=== PATIENT | male | born 1970 | race Caucasian/White ===

== ENCOUNTER 2017-05-22 14:21 | Emergency (ER) ==
[2017-05-22 14:25] VITALS: BP 177/98; TEMP 97.9; BMI 26.6
[2017-05-22] MEDS ORDERED: BOOSTRIX IM ONE (14:35)
[2017-05-22] MEDS ORDERED: LIDOCAINE HCL 1% SDV SUBCUT STA ×2 (14:36→16:09)
[2017-05-22] MEDS ORDERED: NORCO 5-325 PO STA (14:36)
[2017-05-22] MEDS ORDERED: ROCEPHIN IM STA (14:36)
--- NOTE | 2017-05-22 14:58 | DI ---
EXAM: Three views of the right thumb HISTORY: Crush injury. COMPARISON: None FINDINGS: There is a linear lucency through the distal phalanx from the tip of distal phalanx extendi ng into the IP joint. There is soft tissue injury. Proximal phalanx is unremarkable. The third jose ge demonstrates the fracture is comminuted. Remaining osseous structures are unremarkable. IMPRESSION: Comminuted fracture of the distal phalanx and the tip extending proximally to the IP kimberly nt. There is associated soft tissue swelling.
--- NOTE | 2017-05-22 16:29 | ED.PDOC ---
General ED Provider: Dr. GLADYS KUMAR Chief Complaint: Finger Pain/Injury Stated Complaint: pateint states that he accidentally smashed right thumb on a eugene Time Seen by Physician: 14:30 Mode of Arrival: Walk-In Information Source: Patient Exam Limitations: No limitations [facility] Nursing and Triage Documentation Reviewed and Agree: Yes Trauma/Injury Complaint Exam - Trauma Complaint/Exam Location of Pain or Injury: Reports: RUE (Thumb) Mechanism of Injury: Reports: Other (Crush injury with Eugene ) Onset/Duration: 1 hour Symptoms Are: Still present Timing of Treatment: Immediate Initial Severity: Severe Current Severity: Severe Character: Reports: Aching, Pressure, Burning Aggravating: Reports: Movement Associated Signs and Symptoms: Denies: LOC, Confusion, Memory loss, Lethargy, Vomiting, Bleeding, Bruising, Swelling, Extremity disuse, Painful respiration, Hoarseness, Dysphagia, Hemoptysis, Significant blood loss Nexus Low Risk Criteria: No post-midline CS tender, No evidence of intoxicat., No Altered LOC, No focal neuro deficit, No distracting injuries Glascow Coma Scale (see protocol): 15 Compartment Syndrome Risk Factors: Present: Pain. Absent: Paralysis, Pallor, Pulselessness, Paresthesias Trauma Findings: Present: Limited ROM Skin Findings: Present: Tenderness, Laceration (Through the mid aspect of the thumb. ), Abrasion, Avulsion Differential Diagnoses: Abrasion, Fracture, Laceration, Sprain, Strain Review of Systems - Review Of Systems Constitutional: Reports: No symptoms Eyes: Reports: No symptoms Ears, Nose, Mouth, Throat: Reports: No symptoms Respiratory: Reports: No symptoms Cardiac: Reports: No symptoms GI: Reports: No symptoms : Reports: No symptoms Musculoskeletal: Reports: Joint pain Skin: Reports: Bruising Neurological: Reports: Anxiety Endocrine: Reports: No symptoms Hematologic/Lymphatic: Reports: No symptoms All Other Systems: Reviewed and Negative Past Medical History - Past Medical History Previously Healthy: Yes Endocrine: Reports: None Cardiovascular: Reports: None Respiratory: Reports: None Hematological: Reports: None Gastrointestinal: Reports: None Genitourinary: Reports: None Neuro/Psych: Reports: None Musculoskeletal: Reports: None Cancer: Reports: None - Surgical History General Surgical History: Reports: None - Family History Family History: Reports: None - Social History Smoking Status: Never smoker Hx Substance Use: No Alcohol Screening: None - Immunizations Tetanus Shot up to Date: No Physical Exam - Physical Exam Appearance: Ill-appearing Ill-appearing: Moderate Pain Distress: Severe Musculoskeletal: ROM intact Skin: Warm, Dry Psychiatric: Anxious Interpretation - Radiology Interpretation Radiology Interpretation By: Radiologist Radiology Results: Positive (communitied fracture) Re-Evaluation - Re-Evaluation Vital Signs Stable: Yes (bp 171/102, p 102) Physician Notification - Case Discussed Physician Notified: Dr montes Time of Notification: 16:45 (ER accepting ) Physician Notified: Dr. Cisneros Time of Notification: 16:30 (Hand surgery Will see in the ER ) Critical Care Note - Critical Care Note Total Time (mins): 0 Course - Course Orders, Labs, Meds: Orders Category Date Time Status Ceftriaxone Sodium [Rocephin] MEDS 05/22/17 14:36 Discontinued 1 gm IM ONCE STA Diphth,Pertuss(Acell),Tet Vac [Boostrix] MEDS 05/22/17 14:35 Discontinued 0.5 ml IM .ONCE ONE Hydrocodone Bit/Acetaminophen [Bradford 5-325] MEDS 05/22/17 14:36 Discontinued 1 tab PO ONCE STA Lidocaine HCl/Pf [Lidocaine HCl 1% Sdv] MEDS 05/22/17 14:36 Discontinued 5 ml SUBCUT ONCE STA FINGER(S) RIGHT MIN 2V Stat RADS 05/22/17 14:35 Completed Medications Discontinued Medications Generic Name Dose Route Start Last Admin Trade Name Freq PRN Reason Stop Dose Admin Acetaminophen/Hydrocodone Bitart 1 tab 05/22/17 14:36 05/22/17 14:47 Bradford 5-325 PO 05/22/17 14:37 1 tab ONCE STA Administration Ceftriaxone Sodium 1 gm 05/22/17 14:36 05/22/17 14:52 Rocephin IM 05/22/17 14:37 1 gm ONCE STA Administration Diphtheria/Pertussis/Tetanus Vacc 0.5 ml 05/22/17 14:35 05/22/17 14:49 Boostrix IM 05/22/17 14:36 0.5 ml .ONCE ONE Administration Lidocaine HCl 5 ml 05/22/17 14:36 05/22/17 14:52 Lidocaine Hcl 1% Sdv SUBCUT 05/22/17 14:37 5 ml ONCE STA Administration Vital Signs: Temp Pulse Resp BP Pulse Ox 05/22/17 14:21 97.9 F 120 H 18 177/98 H 97 Departure - Departure Time of Disposition: 17:31 Disposition: TSF SHORT-TRM HOSP Discharge Problem: Finger fracture, right Qualifiers: Encounter type: initial encounter Finger: thumb Fracture type: open Phalanx: distal Fracture alignment: displaced Qualified Code(s): S62.521B - Displaced fracture of distal phalanx of right thumb, initial encounter for open fracture Finger laceration Qualifiers: Encounter type: initial encounter Finger: thumb Damage to nail status: with damage Foreign body presence: without foreign body Laterality: right Qualified Code(s): S61.111A - Laceration without foreign body of right thumb with damage to nail, initial encounter Condition: Stable Pt referred to PMD for follow-up: No Allergies/Adverse Reactions: Allergies No Known Allergies Allergy (Verified 05/22/17 14:26) Home Medications: Ambulatory Orders Ranitidine HCl [Zantac] 150 mg PO BID 11/29/13 Pt. Stabilized Within Hospital's Capabilities/Transferred To: [facility] Disposition Discussed With: Patient, Family
== END 2017-05-22 17:33 | disposition short-term general hospital (02) ==
LOC: ED 14:21
DX: S62.521B Displaced fracture of distal phalanx of right thumb, initial encounter for open fracture (principal); S61.111A Laceration without foreign body of right thumb with damage to nail, initial encounter; W24.0XXA Contact with lifting devices, not elsewhere classified, initial encounter
CPT/HCPCS: 90471; 90715; 96372; 99285

== ENCOUNTER 2017-05-22 17:37 | Outpatient (CLI) ==
[2017-05-22 14:25] VITALS: BMI 26.6
== END 2017-05-22 17:38 | disposition short-term general hospital (02) ==
LOC: AMBL 17:37
PROVIDERS: ATTEND Internal Medicine Geriatric Medicine
DX: S62.521A Displaced fracture of distal phalanx of right thumb, initial encounter for closed fracture (principal); W24.0XXA Contact with lifting devices, not elsewhere classified, initial encounter

== ENCOUNTER 2017-11-22 17:23 | Emergency (ER) ==
[2017-11-22 17:28] VITALS: BMI 23.9
--- NOTE | 2017-11-22 17:40 | ED.PDOC ---
General ED Provider: Dr. OH PERDOMO Chief Complaint: Wound Check Stated Complaint: Skin Ulcer Lt Foot -Plantar aspect Distal 1st Metatarsal, present for unknow period of time. Has malodorous drainage to the open wound. Measures 4 X 4 CM. 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 States it has been hurting badly. Lives at home with his elderly mother. Time Seen by Physician: 17:45 Mode of Arrival: Walk-In Information Source: Patient, Family Exam Limitations: No limitations Nursing and Triage Documentation Reviewed and Agree: Yes Reviewed sepsis parameters & appropriate labs ordered?: Yes System Inflammatory Response Syndrome: Temp 101F or Greater, Pulse >90 BPM Sepsis Protocol: For patient's 13 years and over: Temp is 96.8 and below OR 101 and greater Pulse >90 BPM Resp >20/minute Acutely Altered Mental Status Are patient's symptoms suggestive of a new infection, such as: -Pneumonia -Skin, Soft Tissue -Endocarditis -UTI -Bone, Joint Infection -Implantable Device -Acute Abdominal Infection -Wound Infection -Meningitis -Blood Stream Catheter Infection -Unknown Skin Complaint Exam - Skin/Soft Tissue Complaint/Exam Onset/Duration: Several months Symptoms Are: Worse Timing: Constant Initial Severity: Moderate Current Severity: Moderate Character: Reports: Redness, Swelling, Raised, Painful Aggravating: Reports: Touch Associated Signs and Symptoms: Reports: Fever, Drainage, Tenderness, Red streaks Related History: Denies: Similar episode Related Surgical History: Reports: None Recent Exposure to Others w/Similar Symptoms: No Skin Findings: Present: Erythema, Lymphangitic streaking, Dry scaly skin, Wet ulceration Differential Diagnoses: Abscess, Cellulitis, MRSA Review of Systems - Review Of Systems Constitutional: Reports: Chills, Fever Eyes: Reports: No symptoms Ears, Nose, Mouth, Throat: Reports: No symptoms Respiratory: Reports: No symptoms Cardiac: Reports: No symptoms GI: Reports: No symptoms : Reports: No symptoms Musculoskeletal: Reports: Joint pain Skin: Reports: Dryness, Other (as described open ulcer 1st MTP joint plantar aspect Lt Foot) Neurological: Reports: No symptoms Endocrine: Reports: Flushing, Intolerance to heat, Increased hunger Hematologic/Lymphatic: Reports: No symptoms All Other Systems: Reviewed and Negative Past Medical History - Past Medical History Previously Healthy: Yes Endocrine: Reports: None Cardiovascular: Reports: None Respiratory: Reports: None Hematological: Reports: None Gastrointestinal: Reports: None Genitourinary: Reports: None Neuro/Psych: Reports: None Musculoskeletal: Reports: None Cancer: Reports: None - Surgical History General Surgical History: Reports: None - Family History Family History: Reports: None - Social History Smoking Status: Never smoker Hx Substance Use: No Alcohol Screening: None Physical Exam - Physical Exam Appearance: Ill-appearing, Thin Ill-appearing: Moderate Pain Distress: Moderate Eyes: JAMILAH, EOMI, Conjunctiva clear ENT: Ears normal, Nose normal, Oropharynx normal Neck: Supple Respiratory: Airway patent, Breath sounds clear, Breath sounds equal, Respirations nonlabored Cardiovascular: RRR, Pulses normal, No rub, No murmur GI/: Soft, Nontender, No masses, Bowel sounds normal, No Organomegaly Musculoskeletal: Normal strength (abnormal area lt foot) Skin: Warm, Dry, Normal color Neurological: Motor intact, Reflexes intact, Cranial nerves intact, Alert, Oriented Psychiatric: Affect appropriate, Mood appropriate Interpretation - Radiology Interpretation Radiology Interpretation By: Radiologist Radiology Results: Positive Exam Interpreted: CT Scan (Lt Foot ) Xray Comments: Cellulitis Re-Evaluation - Re-Evaluation Time of Re-Evaluation: 19:10 Status: Unchanged Vital Signs Stable: Yes Appearance: NAD Lungs: Clear Skin: Warm and Dry Neuro: Alert and Oriented X3 CV: RRR Critical Care Note - Critical Care Note Total Time (mins): 60 Comments: Monitored status, initiated dx testing and treatment/. [facility] called no beds in unit Arranged for transfer to [facility] Spoke with Dr Workman who agreed to transfer Explained to patient. Course - Course Hematology/Chemistry: 11/22/17 17:51 11/22/17 17:51 Orders, Labs, Meds: Lab Review 11/22/17 11/22/17 17:51 17:51 WBC 19.24 H RBC 4.16 L Hgb 11.8 L Hct 32.8 L MCV 78.8 L MCH 28.4 MCHC 36.0 H RDW Coeff of Perla 11.8 Plt Count 424 Immature Gran % (Auto) 0.5 Neut % (Auto) 82.8 Lymph % (Auto) 7.4 L [place] % (Auto) 8.8 Eos % (Auto) 0.1 Baso % (Auto) 0.4 Immature Gran # (Auto) 0.1 Neut # (Auto) 15.9 H Lymph # (Auto) 1.4 [place] # (Auto) 1.7 Eos # (Auto) 0.0 Baso # (Auto) 0.1 Sodium 123 L Potassium 4.8 Chloride 89 L Carbon Dioxide 24 Anion Gap 14.8 BUN 18 Creatinine 1.05 Estimated GFR (MDRD) 75.00 BUN/Creatinine Ratio 17.14 Glucose 583 H* Calcium 9.3 Total Bilirubin 0.6 AST 10 L ALT 11 L Alkaline Phosphatase 79 Total Creatine Kinase 127 CK-MB (CK-2) 1.6 CK-MB (CK-2) % 1.57108 Total Protein 7.1 Albumin 2.9 L Globulin 4.2 Albumin/Globulin Ratio 0.69 Orders Category Date Time Status BLOOD GLUCOSE MONITORING 0630,1100,1700,2100 CARE 11/22/17 19:38 Ordered BLOOD GLUCOSE MONITORING Q1HR CARE 11/22/17 19:38 Ordered IV [ED IV/MEDIPORT/POWERPORT] .ONCE EMERGENCY 11/22/17 17:38 Active BLOOD CULTURE (ED ONLY) Stat LAB 11/22/17 17:51 Received CBC W/ AUTO DIFF Stat LAB 11/22/17 17:51 Completed CMP [COMPREHENSIVE METABOLIC PANEL] Stat LAB 11/22/17 17:51 Completed CPK [CREATINE KINASE] Stat LAB 11/22/17 17:51 Completed 0.9 % Sodium Chloride [Saline Flush] MEDS 11/22/17 17:38 Ordered 1 syr IVF PRN PRN Insulin Regular, Human [Humulin R] MEDS 11/22/17 19:37 Stat 13 unit SUBCUT ONCE STA Sodium Chloride 0.9% [Sodium Chloride] 1,000 ml MEDS 11/22/17 19:37 Ordered IV BOLUS Vancomycin HCl [Vancomycin] 1 gm MEDS 11/22/17 19:39 Ordered 0.9 % Sodium Chloride [Sodium Chloride] [address] FOOT LEFT WITHOUT CONTRAST Stat RADS 11/22/17 17:38 Completed Medications Generic Name Dose Route Start Last Admin Trade Name Freq PRN Reason Stop Dose Admin Sodium Chloride 1,000 mls @ 125 mls/hr 11/22/17 19:37 Sodium Chloride IV 11/23/17 03:36 BOLUS STA Vancomycin HCl 1 gm/ Sodium 250 mls @ 250 mls/hr 11/22/17 19:39 Chloride IV 11/22/17 20:38 ONCE STA Sodium Chloride 1 syr 11/22/17 17:38 Saline Flush IVF PRN PRN To flush IV Discontinued Medications Generic Name Dose Route Start Last Admin Trade Name Freq PRN Reason Stop Dose Admin Insulin Human Regular 13 unit 11/22/17 19:37 Humulin R SUBCUT 11/22/17 19:38 ONCE STA Vital Signs: Temp Pulse Resp BP Pulse Ox 11/22/17 19:29 100.6 F H 93 H 20 123/88 98 11/22/17 17:24 101.2 F H 122 H 20 156/96 H 93 L Departure - Departure Time of Disposition: 19:50 Disposition: TSF SHORT-TRM HOSP Discharge Problem: 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
--- NOTE | 2017-11-22 18:20 | CT ---
EXAM: CT scan of the left foot without contrast HISTORY: Ulcer, patient is a diabetic, no fever. No drainage TECHNIQUE: Imaging of the left foot was performed without contrast. Sagittal and coronal reconstruc tions and axial images were provided for interpretation. FINDINGS: No acute fractures are seen. There is plantar soft tissue swelling seen at the level of t he metatarsal phalangeal articulation of the great toe. No definite lytic changes are seen within th e osseous structures. There is gas seen within the plantar soft tissues sent to the metatarsal phala ngeal articulation of the great toe. IMPRESSION: There is soft tissue swelling and gas formation seen within the plantar soft tissues at the level of the metatarsal phalangeal articulation of the great toe compatible with cellulitis. The re is no definite lytic change seen within the osseous structures to suggest osteomyelitis at this ti me. If there is continuing suspicion for osteomyelitis, MRI of the left foot with and without contras t can be obtained for further evaluation.
[2017-11-22 19:29] VITALS: BP 123/88; TEMP 100.6
[2017-11-22] MEDS ORDERED: HUMULIN R SUBCUT STA (19:37)
[2017-11-22] MEDS ORDERED: SODIUM CHLORIDE 1,000 ML IV STA (19:37)
[2017-11-22] MEDS ORDERED: VANCOMYCIN 1 GM in SODIUM CHLORIDE 250 ML IV STA (19:39)
== END 2017-11-22 21:00 | disposition short-term general hospital (02) ==
LOC: ED 17:23
DX: E11.621 Type 2 diabetes mellitus with foot ulcer (principal); L97.429 Non-pressure chronic ulcer of left heel and midfoot with unspecified severity; E11.65 Type 2 diabetes mellitus with hyperglycemia; L03.116 Cellulitis of left lower limb; E87.1 Hypo-osmolality and hyponatremia; I10 Essential (primary) hypertension
CPT/HCPCS: 36415; 80053; 82550; 82553; 82962; 85025; 87040; 87070; 87186; 96365; 96372; 99285

== ENCOUNTER 2017-11-22 21:01 | Outpatient (CLI) ==
[2017-11-22 17:28] VITALS: BMI 23.9
== END 2017-11-22 21:20 | disposition short-term general hospital (02) ==
LOC: AMBL 21:01
PROVIDERS: ATTEND Family Medicine
DX: E11.621 Type 2 diabetes mellitus with foot ulcer (principal); L97.529 Non-pressure chronic ulcer of other part of left foot with unspecified severity; E11.65 Type 2 diabetes mellitus with hyperglycemia

== ENCOUNTER 2018-02-17 08:15 | Emergency (ER) ==
[2018-02-17 08:19] VITALS: TEMP 97.5; BMI 21.4
[2018-02-17 08:21] VITALS: BP 110/78
[2018-02-17] MEDS ORDERED: MORPHINE 4 MG/ML SYRINGE IM STA (09:17)
--- NOTE | 2018-02-17 09:30 | DI ---
EXAM: Radiographs, right clavicle HISTORY: Right clavicular pain. COMPARISON: None available. TECHNIQUE: Two views. FINDINGS/IMPRESSION: A comminuted proximal humeral fracture involves the surgical neck and greater tuberosity. Inferior p osition of the humeral head with respect to the glenoid is likely due to joint effusion.
--- NOTE | 2018-02-17 09:30 | ED.PDOC ---
General ED Provider: Dr. RIANA BROWN Chief Complaint: Shoulder Pain/Injury Stated Complaint: right shoulder pain Time Seen by Physician: 08:18 (fall seen with ochoa at all times ) Mode of Arrival: Walk-In Information Source: Patient Exam Limitations: No limitations Primary Care Provider: [facility] Nursing and Triage Documentation Reviewed and Agree: Yes Does patient meet sepsis criteria?: No If yes, has appropriate treatment been initiated?: No System Inflammatory Response Syndrome: Not Applicable Sepsis Protocol: For patient's 13 years and over: Temp is 96.8 and below OR 101 and greater Pulse >90 BPM Resp >20/minute Acutely Altered Mental Status Are patient's symptoms suggestive of a new infection, such as: -Pneumonia -Skin, Soft Tissue -Endocarditis -UTI -Bone, Joint Infection -Implantable Device -Acute Abdominal Infection -Wound Infection -Meningitis -Blood Stream Catheter Infection -Unknown Trauma/Injury Complaint Exam - Trauma Complaint/Exam Location of Pain or Injury: Reports: RUE (shoulder ), Other (right shoulder pain ). Denies: Head, Scalp, Face, Neck, LUE, Chest, Abdomen, Back Mechanism of Injury: Reports: Fall Onset/Duration: today at 5:30 am injury limited to right shoulder Symptoms Are: Still present Timing of Treatment: Immediate Initial Severity: Moderate Current Severity: Moderate Character: Reports: Aching Aggravating: Reports: Movement Alleviating: Reports: Rest, Immobilization Associated Signs and Symptoms: Denies: LOC, Confusion, Memory loss, Lethargy, Vomiting, Bleeding, Bruising, Swelling, Extremity disuse, Painful respiration, Hoarseness, Dysphagia, Hemoptysis, Significant blood loss Last Meal: last night Penetrating Injury Risk Factors: Reports: None Nexus Low Risk Criteria: No post-midline CS tender, No evidence of intoxicat., No Altered LOC, No focal neuro deficit, No distracting injuries Glascow Coma Scale (see protocol): 15 Compartment Syndrome Risk Factors: Present: Pain Review of Systems - Review Of Systems Constitutional: Reports: No symptoms Eyes: Reports: No symptoms Ears, Nose, Mouth, Throat: Reports: No symptoms Respiratory: Reports: No symptoms Cardiac: Reports: No symptoms GI: Reports: No symptoms : Reports: No symptoms Musculoskeletal: Reports: Joint pain (right shoulder pain) Skin: Reports: No symptoms Neurological: Reports: No symptoms Endocrine: Reports: No symptoms Hematologic/Lymphatic: Reports: No symptoms All Other Systems: Reviewed and Negative Past Medical History - Past Medical History Previously Healthy: Yes Endocrine: Reports: None Cardiovascular: Reports: None Respiratory: Reports: None Hematological: Reports: None Gastrointestinal: Reports: None Genitourinary: Reports: None Neuro/Psych: Reports: None Musculoskeletal: Reports: None Cancer: Reports: None - Surgical History General Surgical History: Reports: None - Family History Family History: Reports: None - Social History Smoking Status: Never smoker Hx Substance Use: No Alcohol Screening: None Physical Exam - Physical Exam Appearance: Well-appearing, No pain distress, Well-nourished Eyes: JAMILAH, EOMI, Conjunctiva clear ENT: Ears normal, Nose normal, Oropharynx normal Respiratory: Airway patent, Breath sounds clear, Breath sounds equal, Respirations nonlabored Cardiovascular: RRR, Pulses normal, No rub, No murmur GI/: Soft, Nontender, No masses, Bowel sounds normal, No Organomegaly Musculoskeletal: Limited ROM (right shoulder the shoulder is grossly abnormal ) Skin: Warm, Dry, Normal color Neurological: Sensation intact, Motor intact, Reflexes intact, Cranial nerves intact, Alert, Oriented Psychiatric: Affect appropriate, Mood appropriate Interpretation - Radiology Interpretation Radiology Interpretation By: Radiologist Radiology Results: Positive (fracture dislocation right shoulder) Critical Care Note - Critical Care Note Total Time (mins): 0 Course - Course Orders, Labs, Meds: Orders Category Date Time Status Morphine Sulfate [Morphine 4 mg/ml Syringe] MEDS 02/17/18 09:17 Stat 4 mg IM ONCE STA CLAVICLE, RIGHT 2 VIEWS Stat RADS 02/17/18 08:44 Ordered SHOULDER, RIGHT MIN 2V Stat RADS 02/17/18 08:44 Ordered Medications Discontinued Medications Generic Name Dose Route Start Last Admin Trade Name Freq PRN Reason Stop Dose Admin Morphine Sulfate 4 mg 02/17/18 09:17 Morphine 4 Mg/Ml Syringe IM 02/17/18 09:18 ONCE STA Vital Signs: Temp Pulse Resp BP Pulse Ox 02/17/18 08:15 97.5 F L 110 H 20 110/78 98 Departure - Departure Time of Disposition: 10:00 Disposition: TSF SHORT-TRM HOSP Discharge Problem: Fracture of right shoulder Qualifiers: Encounter type: initial encounter Fracture type: closed Qualified Code(s): S42.91XA - Fracture of right shoulder girdle, part unspecified, initial encounter for closed fracture Shoulder dislocation Qualifiers: Encounter type: initial encounter Laterality: right Qualified Code(s): S43.004A - Unspecified dislocation of right shoulder joint, initial encounter Instructions: Shoulder Dislocation (ED), Arthralgia (ED) Condition: Good Pt referred to PMD for follow-up: Yes IPMP verified?: No Additional Instructions: Please call your Family Physician as soon as possible to schedule a follow-up appointment. your shoulder is broken and dislocated you must see the surgeon as i have told you Allergies/Adverse Reactions: Allergies No Known Allergies Allergy (Verified 02/17/18 08:19) Home Medications: Ambulatory Orders Ranitidine HCl [Zantac] 150 mg PO DAILY 11/29/13 Metformin HCl 500 mg PO BID 12/07/17 Multivitamin [Multi-Vitamin Daily] 1 each PO DAILY 12/07/17 Cholecalciferol (Vitamin D3) [Vitamin D3] 5,000 unit PO DAILY 12/30/17 Ergocalciferol (Vitamin D2) [Vitamin D2] 50,000 unit PO WEEKLY 02/17/18 Disposition Discussed With: Patient, Family
--- NOTE | 2018-02-17 09:31 | DI ---
EXAM: Three views of the right shoulder. History: Right shoulder trauma. Findings / impression: Moderately displaced and impacted fracture of the right humeral neck. The ri ght humeral head is subluxed inferiorly on the glenoid.
== END 2018-02-17 10:40 | disposition short-term general hospital (02) ==
LOC: ED 08:15
DX: S42.211A Unspecified displaced fracture of surgical neck of right humerus, initial encounter for closed fracture (principal); W19.XXXA Unspecified fall, initial encounter
CPT/HCPCS: 99285

== ENCOUNTER 2018-02-17 10:43 | Outpatient (CLI) ==
[2018-02-17 08:19] VITALS: BMI 21.4
== END 2018-02-17 11:04 | disposition short-term general hospital (02) ==
LOC: AMBL 10:43
PROVIDERS: ATTEND Internal Medicine
DX: S42.211A Unspecified displaced fracture of surgical neck of right humerus, initial encounter for closed fracture (principal); W19.XXXA Unspecified fall, initial encounter

== ENCOUNTER 2018-03-03 09:40 | Outpatient (CLI) | END 2018-03-03 09:41 | disposition home or self-care (01) | LOC: FCC-LAB 09:40 | PROVIDERS: ATTEND Nurse Practitioner Family | DX: E11.621 Type 2 diabetes mellitus with foot ulcer (principal); I95.9 Hypotension, unspecified | CPT/HCPCS: 36415; 83037 ==

== ENCOUNTER 2018-09-15 11:05 | Inpatient (IN) ==
[2018-09-15 11:19] VITALS: BP 128/88
[2018-09-15] MEDS ORDERED: ROCEPHIN IM STA (11:23)
[2018-09-15] MEDS ORDERED: LIDOCAINE HCL 1% SDV IM STA (11:23)
--- NOTE | 2018-09-15 11:24 | ED.PDOC ---
General ED Provider: Dr. OH HUGHES MD Chief Complaint: Sore Throat Stated Complaint: sore throat Time Seen by Physician: 11:15 Mode of Arrival: Wheelchair Information Source: Patient, Family Exam Limitations: No limitations Primary Care Provider: FALGUNI DALE Nursing and Triage Documentation Reviewed and Agree: Yes Does patient meet sepsis criteria?: No If yes, has appropriate treatment been initiated?: Yes System Inflammatory Response Syndrome: Not Applicable Sepsis Protocol: For patient's 13 years and over: Temp is 96.8 and below OR 101 and greater Pulse >90 BPM Resp >20/minute Acutely Altered Mental Status Are patient's symptoms suggestive of a new infection, such as: -Pneumonia -Skin, Soft Tissue -Endocarditis -UTI -Bone, Joint Infection -Implantable Device -Acute Abdominal Infection -Wound Infection -Meningitis -Blood Stream Catheter Infection -Unknown Review of Systems - Review Of Systems Constitutional: Reports: No symptoms Eyes: Reports: No symptoms Ears, Nose, Mouth, Throat: Reports: Throat pain, Throat swelling Respiratory: Reports: No symptoms Cardiac: Reports: No symptoms GI: Reports: No symptoms : Reports: No symptoms Musculoskeletal: Reports: No symptoms Skin: Reports: No symptoms Neurological: Reports: No symptoms Endocrine: Reports: No symptoms Hematologic/Lymphatic: Reports: No symptoms All Other Systems: Reviewed and Negative Past Medical History - Past Medical History Previously Healthy: Yes Endocrine: Reports: None Cardiovascular: Reports: None Respiratory: Reports: None Hematological: Reports: None Gastrointestinal: Reports: None Genitourinary: Reports: None Neuro/Psych: Reports: None Musculoskeletal: Reports: None Cancer: Reports: None - Surgical History General Surgical History: Reports: None - Family History Family History: Reports: None - Social History Smoking Status: Never smoker Hx Substance Use: No Alcohol Screening: None Physical Exam - Physical Exam Appearance: Well-appearing, No pain distress, Well-nourished, Thin Ill-appearing: Mild Pain Distress: Mild Eyes: JAMILAH, EOMI, Conjunctiva clear ENT: Ears normal, Nose normal, Erythema, Exudate Neck: Supple Respiratory: Airway patent, Breath sounds clear, Breath sounds equal, Respirations nonlabored Cardiovascular: RRR, Pulses normal, No rub, No murmur GI/: Soft, Nontender, No masses, Bowel sounds normal, No Organomegaly Musculoskeletal: Normal strength, ROM intact, No edema, No calf tenderness Skin: Warm, Dry, Normal color Neurological: Sensation intact, Motor intact, Reflexes intact, Cranial nerves intact, Alert, Oriented Psychiatric: Affect appropriate, Mood appropriate Critical Care Note - Critical Care Note Total Time (mins): 0 Course - Course Hematology/Chemistry: 09/15/18 11:32 09/15/18 10:31 Vital Signs: Temp Pulse Resp BP Pulse Ox 09/15/18 11:07 99.7 F H 145 H 20 128/88 94 L Departure - Departure Time of Disposition: 16:30 Disposition: ADMITTED INPATIENT Discharge Problem: Hyperglycemia Sepsis Qualifiers: Sepsis type: sepsis due to unspecified organism Qualified Code(s): A41.9 - Sepsis, unspecified organism Condition: Good Pt referred to PMD for follow-up: Yes IPMP verified?: No Allergies/Adverse Reactions: Allergies No Known Allergies Allergy (Verified 09/15/18 11:13) Home Medications: Ambulatory Orders Ranitidine HCl [Zantac] 150 mg PO DAILY 11/29/13 Metformin HCl 500 mg PO BID 12/07/17 Multivitamin [Multi-Vitamin Daily] 1 each PO DAILY 12/07/17 Ergocalciferol (Vitamin D2) [Vitamin D2] 50,000 unit PO WEEKLY 02/17/18 Disposition Discussed With: Patient, Family
[2018-09-15] MEDS ORDERED: LACTATED RINGERS 1,000 ML IV STA ×2 (11:52→16:17)
--- NOTE | 2018-09-15 12:41 | DI ---
EXAM: CHEST FRONTAL AND LATERAL VIEWS HISTORY: Increased WBC count. COMPARISON: 02/14/2009 FINDINGS: Heart size is within normal limits. No consolidations or acute infiltrates. Normal vascu larity. No pleural fluid. IMPRESSION: 1. No acute cardiopulmonary process identified.
[2018-09-15] MEDS ORDERED: SODIUM CHLORIDE 1,000 ML IV SCH (17:30)
[2018-09-15] MEDS ORDERED: GLUCOTROL PO SCH (17:30)
[2018-09-15] MEDS: GLUCOPHAGE PO SCH ×2 (17:34→17:52)
[2018-09-15 17:39] VITALS: TEMP 98.6; BMI 19.9
[2018-09-15] MEDS ORDERED: HUMULIN R SUBCUT PRN (18:07)
[2018-09-15] MEDS ORDERED: INFUVITE ADULT 10 ML in SODIUM CHLORIDE 0.9%-KCL 20 MEQ 1,000 ML IV STA (18:36)
[2018-09-15] MEDS ORDERED: SOLU-CORTEF 250 MG IVP STA (19:08)
--- NOTE | 2018-09-15 19:30 | CT ---
EXAM: CT of the chest without contrast History: Elevated white blood cell common, difficulty swallowing. Comparison: Chest radiograph 09/15/2018, neck CT 09/15/2018 Technique: Multiplanar CT images through the thorax were obtained without the administration of IV c ontrast Findings: Heart size is normal. Small anterior pericardial effusion. Coronary calcifications. The no thoracic aortic aneurysm. No pathologically enlarged thoracic lymph nodes. Calcified granulomas seen in the thorax. Bronchial wall thickening and lower lung ground-glass infiltrates with micronod ules. No pleural fluid and no pneumothorax. Within the visualized upper abdomen, status post cholecystectomy. There is some atrophy of the pancr eas. The visualized esophagus demonstrates no gross abnormality. No acute osseous abnormalities. Impression: Bibasilar pneumonia
[2018-09-15] MEDS ORDERED: INFUVITE ADULT IV ONE (19:33)
--- NOTE | 2018-09-15 19:46 | CT ---
EXAM: CT neck without contrast. HISTORY: Difficulty swallowing. Sore throat since 08/28/2018. No fever. Leukocytosis. PROCEDURE: Contiguous axial CT images of the neck without contrast with coronal and sagittal reforma ts. FINDINGS: The exam is limited without IV contrast. There is a large collection of complex fluid and air consistent with an abscess in the retropharyngeal space, with questionable extension into the pre vertebral space, extending from approximately the C1 level to approximately the C6 level measuring ap proximately 2.4 cm AP x 7 cm transverse x 11.2 cm craniocaudad. There is marked mass effect on the a irway which measures 3 mm AP at the narrowest point. The tonsils are not well visualized. The parot id glands, submandibular glands and thyroid gland are normal in appearance. The epiglottis is normal in appearance. There are degenerative changes in the spine. Impression: 2.4 x 7 x 11.2 cm collection of complex fluid and air consistent with an abscess in the r etropharyngeal space with questionable extension into the prevertebral space as described. Recommend stat otolaryngology consult. Marked narrowing of the airway as described. Critical result: I personally discussed Impression #1 and #2 with the patient's physician (Dr Saravia ) on 09/15/2018 at 7:39 p.m.
[2018-09-15] MEDS ORDERED: AZACTAM 1 GM in SODIUM CHLORIDE 50 ML IV SCH (21:00)
[2018-09-15] MEDS ORDERED: NON-FORMULARY MEDICATION (Glipizide [Glipizide] 10 MG) PO SCH (21:00)
[2018-09-15] MEDS ORDERED: ROCEPHIN 1 GM in SODIUM CHLORIDE 50 ML IV SCH (21:00)
[2018-09-16] MEDS ORDERED: ZANTAC PO SCH (06:30)
--- NOTE | 2018-09-19 09:43 | PN ---
DATE OF SERVICE: 09/15/18 Phone conversation SUBJECTIVE: I called Mrs. Blankenship, the mother of Kwesi, at 8:45pm. I did tell her that Kwesi is going to be transferred to [facility] CCU bed #8. I also informed her that there is a good possibility that he would be operated tonight and I did advise her to go there so they can talk to her also on what they would do or what else or what treatment. She asked me if she should go there tonight and I told her, yes that she should go there so she can hear and she can ask them questions with regards to what would be done to Kwesi. JESSICA
--- NOTE | 2018-09-19 11:23 | SSS ---
DATE OF SERVICE: 09/15/18 CHIEF COMPLAINT: Problems swallowing and difficulty eating since about 11 days ago. HISTORY OF PRESENT ILLNESS: The patient presented to the emergency room today about 11:07am. The patient claimed to have had a sore throat some 8-10 days ago, August 28. The patient had not consulted any medical provider and about 11 days prior to presentation developed difficulty swallowing food. He had not eaten significant amount of food since then including fluids. He had a low grade temperature but no chills. The patient examined by the ER physician and did a sore throat to work that he had done consisted of a CBC and CMP as well as arterial blood gasses. He had a chest x-ray showing no significant abnormalities. The pulse was 145 so I asked for an electrocardiogram. The EKG showed sinus tachycardia. The patient was diabetic and blood cultures were done as well as antibiotic that was administered 1gram of Rocephin in the emergency room. The patient was then admitted to the floor and was at the floor at 5:11pm. PHYSICAL EXAMINATION: GENERAL/APPEARANCE/VITALS: His temperature was 98.6, pulse 120, blood pressure 137/91 and oxygen saturation 98 at room air and 5'9, 134 pounds 14.7 ounces. HEENT: I had examined the patient and in the course of examination the patient has difficulty talking although you could still understand him. He has lost some weight and looks slightly pale but not dyspneic or tachypneic and no cyanosis. CHEST:The chest has good expansion. NECK: The neck has no adenopathies or masses and no bruit MOUTH:He had moderate amount of mucus in his mouth. The tongue is swallow but not very large. The posterior pharyngeal farmer could not be visualized very well because of the mucus and also the tongue was difficult to depress. . CVS: Heart is audile and regular but slightly tachycardiac. RS: Breath sounds are heard in both sides, no rales or wheezing. GI: Abdomen is soft and nontender. Bowel sounds are active, no masses palpable. LOWER EXTREMITIES: No edema. Posterior tibials are present. 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 UPPER EXTREMITIES: Symmetrical and equal ALLERGIES: No known allergies MEDICATIONS: Zantac 150mg PO daily Metformin 500mg PO twice ad ay Multivitamin 1 PO daily Glipizide 10mg PO twice a day Vitamin D2 50,000 unit PO weekly LABS/EKG'S/X-RAY/ECHO/ABG: Chest x-ray normal. Procalcitonin 0.17, lactic acid 1.5. CT scan of soft tissue neck was ordered by me as well as CT scan of the chest. CT scan of the soft tissue of the neck showed retropharyngeal abscess measuring 2.4x 7x11.2. The airway is narrow. PROGRESS NOTES: See written notes. DIAGNOSES: 1. Difficulty swallowing, undetermined maybe abscess 2. Diabetes Mellitus, type 2 uncontrolled 3. Swelling of the tongue 4. Sinus tachycardiac 5. Moderate leukocytosis RECOMMENDATIONS/PLAN: I told the patient as soon as the answers from the radiologist of who I talked to on the phone that he will be transferred and I will transfer him to another facility as soon as I can and that could be [place], [facility] or [place]. I did talk to [facility] and Dr. Barrera is the Doctor business continuity consultant and I was told my Jerica who was the answering desk at the transfer center that I need to talk to Dr. Kory Arguelles which he called me back and I did talk to him about the report. He told me that he would accept the patient but needed to be admitted to the hospitalist and him being consulted as well as a cardiovascular surgeon or a thoracic surgeon. At this time I am waiting for the call from Dr. Barrera. ADDENDUM: I have called his mother, Jerica Blankenship, and did advise her that I will be transferring her son and if she preferred for him to be transferred to [place] either [facility] or [facility] and I told her that Im in the process and I am talking to [facility] and I am waiting for their call back. She told me that she would like to be notified when he is transferred. I told her that if we could not get him to [place] it could be at [place] or [place] or [place] which are the closer places. [facility]
== END 2018-09-15 19:10 | disposition short-term general hospital (02) | DRG 153 ==
LOC: ED 11:05 → MEDSURG B 16:35 → SCU 18:16
PROVIDERS: ADMIT General Practice; ATTEND General Practice
DX: J02.9 Acute pharyngitis, unspecified (principal); E11.65 Type 2 diabetes mellitus with hyperglycemia; R07.0 Pain in throat; I49.5 Sick sinus syndrome; D72.829 Elevated white blood cell count, unspecified
CPT/HCPCS: 36415; 80053; 81001; 82803; 82962; 83036; 83605; 84145; 85025; 86644; 86645; 86663; 87040; 87070; 87086; 87186; 87502; 87651; 93005; 93010; 96360; 96361; 96372; 99284

== ENCOUNTER 2018-09-15 21:08 | Outpatient (CLI) ==
[2018-09-15 17:39] VITALS: BMI 19.9
== END 2018-09-15 21:32 | disposition short-term general hospital (02) ==
LOC: AMBL 21:08
PROVIDERS: ATTEND Family Medicine
DX: N39.0 Urinary tract infection, site not specified (principal); A41.9 Sepsis, unspecified organism; J39.0 Retropharyngeal and parapharyngeal abscess; R53.1 Weakness; R00.0 Tachycardia, unspecified

== ENCOUNTER 2018-10-05 09:27 | Outpatient (CLI) | END 2018-10-05 09:28 | disposition home or self-care (01) | LOC: NONPT 09:27 | PROVIDERS: ATTEND General Practice | DX: R78.81 Bacteremia (principal) | CPT/HCPCS: 80053; 80202; 81001; 84145; 85025 ==

== ENCOUNTER 2018-10-08 08:14 | Outpatient (CLI) | END 2018-10-08 08:30 | disposition short-term general hospital (02) | LOC: AMBL 08:14 | PROVIDERS: ATTEND Internal Medicine | DX: R40.20 Unspecified coma (principal); R53.1 Weakness; E11.649 Type 2 diabetes mellitus with hypoglycemia without coma ==